=== PATIENT | female | born 1945 | race Caucasian/White ===

== ENCOUNTER → 2020-12-15 | Emergency (ER) | payer OTHER ==
[~2020-12-15] VITALS: Ht 172.7 cm; Wt 67.1 kg
[~2020-12-15] MED LIST: CIPROFLOXACIN500 M1 PO; LISINOPRIL10 MG PO; NAPROSYN500 MG PO; TYLENOL325 M1 PO; ZOFRAN ODT4 MG PO
[2020-12-15 03:52] LABS: URINE BILIRUBIN NEGATIVE (Negative); URINE BLOOD TRACE (Negative); URINE CLARITY CLEAR; URINE COLOR YELLOW; URINE GLUCOSE-RANDOM* NEGATIVE (Negative); URINE KETONES NEGATIVE (Negative); URINE NITRITE-REFLEX NEGATIVE (Negative); URINE PROTEIN (DIPSTICK) NEGATIVE (Negative); URINE SPECIFIC GRAVITY 1.025 (1.005-1.035); URINE UROBILINOGEN 0.2 E.U./dl (0.2-1.0)
[2020-12-15 03:57] LABS: URINE LEUKOCYTES-REFLEX 1+ (Negative)
[2020-12-15 04:05] LABS: HEMATOCRIT 39.7 % (37.0-47.0); MONOCYTES 5.1 % (1.0-8.0); PLATELET COUNT 47 thou/uL (150-400)
[2020-12-15 04:07] LABS: ABSOLUTE NEUTROPHILS 2.4 thou/uL (1.4-8.2); BASOPHILS 0.6 % (0.0-2.0); EOSINOPHILS 1.1 % (0.0-3.0); MCH 28.4 pg (26.0-34.0); MCHC 32.9 g/dL (28.0-37.0); MCV 86.3 fL (80.0-100.0); POLYS 72.2 % (36.0-66.0); RDW 14.2 % (10.5-14.5); WBC 3.3 thou/uL (4.0-11.0)
[2020-12-15 04:11] LABS: BACTERIA-REFLEX 1-9 Few /HPF (None Seen); CASTS None Seen /LPF (None Seen); CRYSTALS None Seen /LPF (None Seen); MUCUS 0-3 Light strn/LPF (None Seen); SQUAMOUS 0-3 Few /LPF (0-3); URINE RBC 0-2 Rare /HPF (0-2); URINE WBC-REFLEX 6-15 Few /HPF (0-5)
[2020-12-15 04:13] LABS: ANION GAP 8 mmol/L (7-16); BUN 17 mg/dL (7-18); CALCIUM 8.9 mg/dL (8.5-10.1); CHLORIDE 107 mmol/L (98-107); CO2 28 mmol/L (21-32); CREATININE 1.1 mg/dL (0.6-1.0); GLUCOSE 111 mg/dL (74-106); POTASSIUM 3.7 mmol/L (3.5-5.1); SODIUM 143 mmol/L (136-145)
[2020-12-15 04:24] LABS: ALBUMIN 3.9 g/dL (3.4-5.0); AMYLASE 103 U/L (25-115); DIRECT BILIRUBIN 0.1 mg/dL (<0.1-0.2); LIPASE 258 U/L (73-393); SGOT 24 U/L (15-37); SGPT 16 U/L (14-59); TOTAL BILIRUBIN 0.7 mg/dL (0.2-1.0); TOTAL PROTEIN 7.1 g/dL (6.4-8.2); TROPONIN-I <0.06 ng/mL (<0.06)
[2020-12-15 05:56] VITALS: BP 145/71
--- NOTE | 2020-12-15 14:56 | EKG ---
[address] [address] ELECTROCARDIOGRAM REPORT Name: SHASTA MADRIGAL Room #: REG [facility]#: [id number] Admission: 12/15/20 Attend Phys: Discharge: Date of : 49 Report #: [id number] [facility] ED Test Date: 2020-12-15 Test Time: 03:42:00 Pat Name: SHASTA RIBERA Department: Room: Gender: F [place]: : 1945 Requested By: Geo Lieberman Order Number: [id number] MD: Jakub Mo Measurements Intervals [place] Rate: 73 P: 40 CO: 374 QRS: 31 QRSD: 93 T: 38 QT: 411 QTc: 453 Interpretive Statements Sinus rhythm Prolonged CO interval No previous ECG available for comparison Electronically Signed On 12-15-2020 14:56:15 [employer] by Jakub Mo [email or web address] <ELECTRONICALLY SIGNED> By: Jakub Mo MD, [facility] 12/15/20 [id number] Jakub Mo MD, FACC /EPI
== END ==
LOC: ER 03:04
PROVIDERS: Emergency Medicine
DX: N39.0 Urinary tract infection, site not specified (principal); R10.32 Left lower quadrant pain; R10.13 Epigastric pain; R11.2 Nausea with vomiting, unspecified; I10 Essential (primary) hypertension; Z88.5 Allergy status to narcotic agent; Z88.4 Allergy status to anesthetic agent; Z79.899 Other long term (current) drug therapy; Z90.710 Acquired absence of both cervix and uterus

== ENCOUNTER → 2021-03-02 | Outpatient (CLI) | payer OTHER | LOC: PET 02-05 09:29 → CAT 11:14 | PROVIDERS: ATTEND Pediatrics | DX: R19.8 Other specified symptoms and signs involving the digestive system and abdomen (principal); K76.89 Other specified diseases of liver ==

== ENCOUNTER → 2021-03-19 | Outpatient (CLI) | payer OTHER ==
[~2021-03-19] MED LIST changes: +LISINOPRIL20 MG PO
== END ==
LOC: LAB 10:02
PROVIDERS: ATTEND Pediatrics
DX: Z20.822 Contact with and (suspected) exposure to COVID-19 (principal)

== ENCOUNTER 2021-03-22 06:45 | Outpatient (CLI) | payer OTHER ==
[~2021-03-22] VITALS: Ht 170.2 cm; Wt 68.0 kg
--- NOTE | 2021-03-22 07:21 | EKG ---
[address] [place] [address] ELECTROCARDIOGRAM REPORT Name: SHASTA MADRIGAL Room #: 150-2 [facility]#: [id number] Admission: 03/22/21 Attend Phys: Mando Armijo MD Discharge: Date of : [birth year] Report #: [id number] [facility] Test Date: 2021-03-22 Test Time: 07:11:53 Pat Name: SHASTA RIBERA Department: Room: Gender: F [employer]ator: JULI : 1945 Requested By: Mando Armijo Order Number: [id number] MD: Kelvin Mcneill Measurements Intervals [place] Rate: 61 P: 46 MS: 180 QRS: 12 QRSD: 84 T: 31 QT: 428 QTc: 431 Interpretive Statements Sinus rhythm Normal tracing Compared to ECG 12/15/2020 03:42:00 First degree AV block no longer present Electronically Signed On 03-22-2021 7:21:49 CDT by Kelvin Mcneill [email or web address] <ELECTRONICALLY SIGNED> By: Kelvin Mcneill MD, [facility] 03/22/21720 0 0 Kelvin Mcneill MD, FACC /EPI
[2021-03-22 08:15] VITALS: BP 157/63
== END 2021-03-22 12:21 | disposition home or self-care (01) ==
LOC: PUL 06:45 → TBA 06:46 → OR 11:02 → EDSTATUS 12:20 → PUL 12:21 → OR 14:40
PROVIDERS: ATTEND Pediatrics
DX: R91.8 Other nonspecific abnormal finding of lung field (principal)
CPT/HCPCS: 62110; 62900; 70005

== ENCOUNTER 2021-11-28 10:55 | Emergency (ER) | payer OTHER ==
[~2021-11-28] VITALS: Ht 172.7 cm; Wt 68.0 kg
[2021-11-28 11:22] VITALS: BP 165/72
== END 2021-11-28 13:29 | disposition home or self-care (01) ==
LOC: ER 10:55
DX: U07.1 COVID-19 (principal); I10 Essential (primary) hypertension; Z90.711 Acquired absence of uterus with remaining cervical stump; Z79.899 Other long term (current) drug therapy; Z88.6 Allergy status to analgesic agent